=== PATIENT | female | born 1955 | race Caucasian/White ===

== ENCOUNTER 2021-08-09 12:48 | Outpatient (REF) | payer MEDICARE, MEDICAID, SELFPAY ==
--- NOTE | 2021-08-11 09:47 | MHC.AU.ANO ---
Adult Audiological Evaluation Date of Visit: 08/09/21 Reason for Appointment: Patient had gradually started to noticed increased difficulty hearing. She feels that for the most part she can hear when people are talking, but does not always make out what they are saying. She has found herself turning up the volume louder on electronics. She feels the left ear sometimes feels like it is draining, but no fluid or discharge comes out. History of frequent allergy/sinus issues. Does patient feel they have a hearing loss?: Yes If Yes, Which Ear?: Both Ears Has hearing been tested previously?: No Hearing Handicap Inventory: HHIE SCORE: 14 Based on HHIE score, patient has: Mild to moderate perceived hearing handicap Ear History: Ear Deformity: None Reported Recent Ear Drainage: None Reported Recent Ear Pain: None Reported Recent Ear Infections: None Reported Ear Infections in Childhood: None Reported History of Ear Wax Buildup: None Reported Previous Ear Surgery: None Reported Ear used on the phone: Right Ear History of occupational noise exposure?: No History: No Medical History: Medical History: Diabetes, COPD, Tobacco Use, Cervical Cancer Otoscopy: Right Ear: Unremarkable Left Ear: Unremarkable Tympanometry: Tympanometry performed due to: To assess integrity of the middle ear system Right Ear: Normal Middle Ear System (Type A) Left Ear: Negative Middle Ear Pressure (Type C) Hearing Evaluation: Transducer(s) Used: Insert Earphones Method: Conventional Audiometry Stimuli Used: Pure Tones Right Ear: Description of Hearing: Mild to moderately-severe mixed hearing loss Left Ear: Description of Hearing: Mild to moderately-severe mixed hearing loss Speech Recognition Threshold (SRT): Method Used: Recorded Lists Stimuli Used: Spondee Words Right Ear: 30 dBHL Left Ear: 30 dBHL Word Discrimination: Method: Recorded Lists Word Lists Used: W-22 Right Ear: 96% at 75 dBHL Left Ear: 92% at 85 dBHL Most Comfortable Level (MCL): Right Ear: 75 dBHL Left Ear: 85 dBHL Recommendations: Audiological re-evaluation in one year. Referral to Ear, Nose, and Throat may be warranted to address mixed hearing loss, slight asymmetry (left ear worse), middle ear dysfunction, and feelings of drainage from left ear. Discussed the possibility of amplification. Patient does not feel she is ready for hearing aids at this time. We will continue to monitor her hearing, and if she begins to experience increased difficulty in her daily life/communication, amplification can be re-considered. Diagnosis: Primary Diagnosis: H90.6 Mixed Hearing Loss, Bilateral Signature: Provider: Roya Hanna, [id number]
== END 2021-08-09 12:49 | disposition home or self-care (01) ==
LOC: HO.SH 12:48
PROVIDERS: Visit Provider Physician Assistant Medical
DX: H90.6 Mixed conductive and sensorineural hearing loss, bilateral (principal)
CPT/HCPCS: 92557; 92567